=== PATIENT | female | born 1955 | race Caucasian/White ===

== ENCOUNTER → 2024-11-12 | Outpatient (CLI) | payer MEDICARE, MEDICAID, SELFPAY ==
--- NOTE | 2024-11-12 | XR_ITS ---
Examination: Bilateral wrists 6 views Technique one AP lateral oblique wrist total 6 views Exam date and time: November 12, 2024 1245 hrs. Indications: Carpal tunnel history, numbness and pain in the wrist years Findings: Severe osteopenia Advanced osteoarthritis left first carpometacarpal joint Mild to moderate diffuse narrowing radiocarpal intercarpal and carpometacarpal joints both hands No erosive arthritis Impression: Advanced osteoarthritis left first carpometacarpal joint
--- NOTE | 2024-11-12 | XR_ITS ---
Examination: Bilateral hands, 6 views. Technique: AP, Oblique, Lateral each hand total 6 views Date and time of exam: November 12, 2024 1239 hrs. Indications: Numbness in the left hand fourth and fifth digit one year Findings: Severe osteopenia Advanced osteoarthritis left first carpometacarpal joint Bilateral mild to moderate diffuse narrowing joints of the wrist and hand No erosive arthritis No fractures No cortical bone destruction Impression: Severe osteopenia Advanced osteoarthritis left first carpometacarpal joint Bilateral mild to moderate diffuse narrowing joints of the wrists and hands
== END | disposition home or self-care (01) ==
PROVIDERS: Referring Provider Nurse Practitioner Gerontology; Visit Provider Nurse Practitioner Gerontology
DX: M85.842 Other specified disorders of bone density and structure, left hand (principal); M85.841 Other specified disorders of bone density and structure, right hand; M19.042 Primary osteoarthritis, left hand; M25.832 Other specified joint disorders, left wrist; M25.831 Other specified joint disorders, right wrist; M25.842 Other specified joint disorders, left hand; M25.841 Other specified joint disorders, right hand
CPT/HCPCS: 73110; 73130